=== PATIENT | female | born 1960 | race Caucasian/White ===

== ENCOUNTER → 2019-05-24 13:41 | Outpatient (BNVA) | payer BC, SELFPAY | PROVIDERS: Family Provider Nurse Practitioner; PCP Nurse Practitioner; Visit Provider Internal Medicine | DX: Z01.89 Encounter for other specified special examinations (principal) ==

== ENCOUNTER → 2019-08-30 13:36 | Outpatient (BNVA) | payer BC, SELFPAY | PROVIDERS: Family Provider Nurse Practitioner; PCP Nurse Practitioner; Visit Provider Internal Medicine | DX: B19.20 Unspecified viral hepatitis C without hepatic coma (principal) | CPT/HCPCS: 87522 ==

== ENCOUNTER → 2020-01-11 17:01 | Outpatient (BNVA) | payer BC, SELFPAY | PROVIDERS: Family Provider Nurse Practitioner; PCP Nurse Practitioner; Visit Provider Nurse Practitioner Family | DX: Z13.6 Encounter for screening for cardiovascular disorders (principal); M54.2 Cervicalgia; J30.9 Allergic rhinitis, unspecified; Z68.26 Body mass index [BMI] 26.0-26.9, adult; F17.210 Nicotine dependence, cigarettes, uncomplicated | CPT/HCPCS: 80053; 80061; 84443; 85025 ==

== ENCOUNTER → 2020-04-11 15:46 | Outpatient (BNVA) | payer BC, SELFPAY | PROVIDERS: Family Provider Nurse Practitioner; PCP Nurse Practitioner; Visit Provider Nurse Practitioner Family | DX: Z13.6 Encounter for screening for cardiovascular disorders (principal); Z00.00 Encounter for general adult medical examination without abnormal findings; M54.2 Cervicalgia | CPT/HCPCS: 80053; 80061; 84443; 85025 ==

== ENCOUNTER → 2020-04-27 13:59 | Outpatient (BNVA) | payer BC, SELFPAY | PROVIDERS: Family Provider Nurse Practitioner; PCP Nurse Practitioner; Visit Provider Nurse Practitioner Family | DX: M54.5 Low back pain (principal) | CPT/HCPCS: 81000 ==

== ENCOUNTER → 2020-07-18 12:17 | Outpatient (BNVA) | payer OTHER, SELFPAY | PROVIDERS: Family Provider Nurse Practitioner; PCP Nurse Practitioner; Visit Provider Nurse Practitioner Family | DX: E78.5 Hyperlipidemia, unspecified (principal) | CPT/HCPCS: 80053; 80061; 85025 ==

== ENCOUNTER 2020-08-29 06:00 | Outpatient (RCR) | payer OTHER, SELFPAY | END 2020-09-07 23:59 | disposition home or self-care (01) | LOC: TPT 06:00 | PROVIDERS: Family Provider Nurse Practitioner; PCP Nurse Practitioner; Referring Provider Nurse Practitioner Family; Visit Provider Nurse Practitioner Family | DX: M54.2 Cervicalgia (principal) | CPT/HCPCS: 97110; 97140; 97161 ==

== ENCOUNTER 2020-09-08 06:00 | Outpatient (RCR) | payer OTHER, SELFPAY | END 2020-10-08 23:59 | disposition home or self-care (01) | LOC: TPT 06:00 | PROVIDERS: Family Provider Nurse Practitioner; PCP Nurse Practitioner; Referring Provider Nurse Practitioner Family; Visit Provider Nurse Practitioner Family | DX: M54.2 Cervicalgia (principal) | CPT/HCPCS: 97110; 97140; 97164 ==

== ENCOUNTER 2020-10-09 06:00 | Outpatient (RCR) | payer OTHER, SELFPAY | END 2020-11-07 23:59 | disposition home or self-care (01) | LOC: TPT 06:00 | PROVIDERS: PCP Nurse Practitioner Family; Referring Provider Nurse Practitioner Family; Visit Provider Nurse Practitioner Family | DX: M54.2 Cervicalgia (principal) | CPT/HCPCS: 97110; 97140 ==

== ENCOUNTER → 2020-10-22 10:39 | Outpatient (BNVA) | payer OTHER, SELFPAY | PROVIDERS: PCP Nurse Practitioner Family; Visit Provider Nurse Practitioner Family | DX: Z00.00 Encounter for general adult medical examination without abnormal findings (principal); E78.5 Hyperlipidemia, unspecified; J30.9 Allergic rhinitis, unspecified; M54.5 Low back pain; M54.2 Cervicalgia | CPT/HCPCS: 80053; 80061; 84443; 85025 ==

== ENCOUNTER → 2021-04-22 10:31 | Outpatient (BNVA) | payer OTHER, SELFPAY | PROVIDERS: PCP Nurse Practitioner Family; Visit Provider Nurse Practitioner Family | DX: E78.5 Hyperlipidemia, unspecified (principal); Z23 Encounter for immunization; J30.9 Allergic rhinitis, unspecified; Z78.9 Other specified health status | CPT/HCPCS: 80053; 80061; 84443; 85025 ==

== ENCOUNTER → 2021-10-11 11:20 | Outpatient (BNVA) | payer BC, SELFPAY | PROVIDERS: PCP Nurse Practitioner Family; Visit Provider Nurse Practitioner Family | DX: E78.5 Hyperlipidemia, unspecified (principal); Z78.0 Asymptomatic menopausal state; Z12.31 Encounter for screening mammogram for malignant neoplasm of breast; Z00.00 Encounter for general adult medical examination without abnormal findings; L25.9 Unspecified contact dermatitis, unspecified cause; J06.9 Acute upper respiratory infection, unspecified; Z12.11 Encounter for screening for malignant neoplasm of colon; Z78.9 Other specified health status | CPT/HCPCS: 80053; 80061; 82306; 84443 ==

== ENCOUNTER 2021-11-08 11:22 | Outpatient (CLI) | payer BC, SELFPAY ==
--- NOTE | 2021-11-08 11:34 | MM_ITS ---
WS: [id number] SCREENING DIGITAL BREAST TOMOSYNTHESIS MAMMOGRAM WITH CAD HISTORY: screening COMPARISON: 01/05/2019 Bilateral CC and MLO with tomosynthesis and synthetic mammography submitted. Computer aided detection analyzed. Breast composition: There are scattered areas of fibroglandular density. Ovoid 6 mm asymmetry in the central LEFT breast seen on the CC projection only. This may resolve with additional imaging. The RIG HT breast is negative. MM/[place] [id number] IMPRESSION: BI-RADS: 0-Incomplete: Need additional imaging evaluation FOLLOW UP: Need Additional Imaging LEFT breast: Spot compression views (CC ). True ML. Ultrasound to follow if abn ormality persists.
== END 2021-11-08 11:23 | disposition home or self-care (01) ==
LOC: RAD 11:31
PROVIDERS: PCP Nurse Practitioner Family; Visit Provider Nurse Practitioner Family
DX: Z12.31 Encounter for screening mammogram for malignant neoplasm of breast (principal)
CPT/HCPCS: 77063; 77067

== ENCOUNTER 2021-12-06 08:57 | Outpatient (CLI) | payer BC, SELFPAY ==
--- NOTE | 2021-12-06 | US_ITS ---
ADDITIONAL VIEWS LEFT MAMMOGRAM with tomosynthesis. LEFT BREAST ULTRASOUND HISTORY: New 6 mm asymmetry in the central LEFT breast. COMPARISON: 11/08/2021 and 01/05/2019 LEFT MAMMOGRAM: Spot compression views and true ML with tomosynthesis and sympathetic mammography. Asymmetry persists at 12:00 at a middle to anterior depth measuring 6 x 6 mm. This may be a small lymph node. LEFT BREAST ULTRASOUND 2-D and color Doppler imaging submitted. Ultrasound directed along the 12:00 axis. There is a small nodule measuring 7 mm at its maximum length. Complex nodule is approximately 3 cm from the nipple. This may be a small cluster of cysts or benign lymph node or a cyst with a septation. This does correspond in size and location to the mammographic abnormality. As this is not a completely simple cyst ultrasound follow-up will be requested. IMPRESSION: BI-RADS: 3-Probably Benign FOLLOW UP: Need Additional Imaging 6 month follow-up LEFT breast ultrasound to reevaluate the complex cyst or small lymph node at 12:00 3 cm from the nipple. SPEEDY
--- NOTE | 2021-12-06 09:18 | MM_ITS ---
WS: [id number] ADDITIONAL VIEWS LEFT MAMMOGRAM with tomosynthesis. LEFT BREAST ULTRASOUND HISTORY: New 6 mm asymmetry in the central LEFT breast. COMPARISON: 11/08/2021 and 01/05/2019 LEFT MAMMOGRAM: Spot compression views and true ML with tomosynthesis and sympathetic mammography. Asymmetry persists at 12:00 at a middle to anterior depth measuring 6 x 6 mm. This may be a small lym ph node. LEFT BREAST ULTRASOUND 2-D and color Doppler imaging submitted. Ultrasound directed along the 12:00 axis. There is a small nodule measuring 7 mm at its maximum lengt h. Complex nodule is approximately 3 cm from the nipple. This may be a small cluster of cysts or inga gn lymph node or a cyst with a septation. This does correspond in size and location to the mammograph ic abnormality. As this is not a completely simple cyst ultrasound follow-up will be requested. MM/[id number] IMPRESSION: BI-RADS: 3-Probably Benign FOLLOW UP: Need Additional Imaging 6 month follow-up LEFT breast ultrasound to reevaluate the complex cyst or smal l lymph node at 12:00 3 cm from the nipple.
== END 2021-12-06 08:58 | disposition home or self-care (01) ==
PROVIDERS: PCP Nurse Practitioner Family; Visit Provider Nurse Practitioner Family
DX: R92.8 Other abnormal and inconclusive findings on diagnostic imaging of breast (principal); N64.89 Other specified disorders of breast
CPT/HCPCS: 76642; 77061

== ENCOUNTER → 2022-05-20 12:39 | Outpatient (BNVA) | payer BC, SELFPAY | PROVIDERS: PCP Nurse Practitioner Family; Visit Provider Nurse Practitioner Family | DX: Z12.4 Encounter for screening for malignant neoplasm of cervix (principal); N63.10 Unspecified lump in the right breast, unspecified quadrant; N63.20 Unspecified lump in the left breast, unspecified quadrant; R92.8 Other abnormal and inconclusive findings on diagnostic imaging of breast; Z01.419 Encounter for gynecological examination (general) (routine) without abnormal findings; B37.31 Acute candidiasis of vulva and vagina; R10.2 Pelvic and perineal pain | CPT/HCPCS: 88175 ==

== ENCOUNTER → 2022-05-27 11:27 | Outpatient (BNVA) | payer BC, SELFPAY | PROVIDERS: PCP Nurse Practitioner Family; Visit Provider Nurse Practitioner Family | DX: E78.5 Hyperlipidemia, unspecified (principal); E55.9 Vitamin D deficiency, unspecified | CPT/HCPCS: 80053; 80061; 82306; 84443; 85025 ==

== ENCOUNTER 2022-07-02 12:55 | Outpatient (CLI) | payer BC, SELFPAY ==
--- NOTE | 2022-07-02 13:00 | US_ITS ---
WS: [id number] TRANSABDOMINAL PELVIC ULTRASOUND HISTORY: R10.2 - Pelvic and perineal pain COMPARISON: 08/21/2008 Uterus: 5.9 cm x 5.1 cm x 3.4 cm. Normal size anteverted uterus. No mass identified. Fibroid cannot b e excluded without a transvaginal exam. Patient declined transvaginal imaging. Endometrium: 0.6 cm. Poorly visualized without transvaginal evaluation. Right ovary: 2.6 cm x 3.2 cm x 1.5 cm; no solid or cystic mass. Normal vascularity. Left ovary: 2.8 cm x 3.3 cm x 2.1 cm; no solid or cystic mass. Normal vascularity. No free fluid in the cul-de-sac. US/US pelvic complete* [id number] IMPRESSION: 1. Limited evaluation of the uterus and adnexa as no transvaginal imaging is s ubmitted. 2. No large uterine mass. No free fluid.
== END 2022-07-02 12:56 | disposition home or self-care (01) ==
LOC: RAD 12:57
PROVIDERS: PCP Nurse Practitioner Family; Visit Provider Nurse Practitioner Family
DX: R10.2 Pelvic and perineal pain (principal)
CPT/HCPCS: 76856

== ENCOUNTER 2022-07-11 13:41 | Outpatient (CLI) | payer BC, SELFPAY ==
--- NOTE | 2022-07-11 14:25 | US_ITS ---
WS: [id number] BILATERAL 3D TOMOSYNTHESIS DIGITAL DIAGNOSTIC MAMMOGRAPHY WITH CAD CLINICAL INFORMATION: SCREENING HISTORY: Six-month follow-up LEFT breast. RIGHT breast palpable abnormality. COMPARISON: December 06, 2021 TECHNIQUE: Bilateral CC, MLO, and ML views. FINDINGS: Scattered fibroglandular densities bilaterally. Palpable marker RIGHT lower inner quadrant. No suspic ious parenchymal normalities in this area. Ultrasound described below. Previously described 5 mm nodule near the 12:00 position not as well seen today on mammogram. Ultraso und described below. ULTRASOUND BREAST BILATERAL TECHNIQUE: Ultrasound bilateral breast focused area of concern. CLINICAL INFORMATION: SCREENING COMPARISON: Ultrasound LEFT December 06, 2021 FINDINGS: RIGHT BREAST: Ultrasound RIGHT breast at the 4 and 5:00 position and 10:00 position. No underlying pa renchymal abnormalities. No cystic or solid lesions. LEFT BREAST: Ultrasound LEFT breast. Previously described cysts are no longer visualized. However the re is a ill-defined hypoechoic irregular lesion taller than wide measuring 5.2 x 5.4 x 7.3 mm at the 12:00 position 2 cm from the nipple. Recommend further evaluation with ultrasound-guided biopsy. US/US breast BI limited* [id number] IMPRESSION: BI-RADS: 4-Suspicious Finding-Biopsy Should Be Considered FOLLOW UP: US Guided Biopsy Recommended RECOMMEND ULTRASOUND-GUIDED BIOPSY LEFT BREAST LESION.
--- NOTE | 2022-07-11 14:30 | MM_ITS ---
WS: [id number] BILATERAL 3D TOMOSYNTHESIS DIGITAL DIAGNOSTIC MAMMOGRAPHY WITH CAD CLINICAL INFORMATION: SCREENING HISTORY: Six-month follow-up LEFT breast. RIGHT breast palpable abnormality. COMPARISON: December 06, 2021 TECHNIQUE: Bilateral CC, MLO, and ML views. FINDINGS: Scattered fibroglandular densities bilaterally. Palpable marker RIGHT lower inner quadrant. No suspic ious parenchymal normalities in this area. Ultrasound described below. Previously described 5 mm nodule near the 12:00 position not as well seen today on mammogram. Ultraso und described below. ULTRASOUND BREAST BILATERAL TECHNIQUE: Ultrasound bilateral breast focused area of concern. CLINICAL INFORMATION: SCREENING COMPARISON: Ultrasound LEFT December 06, 2021 FINDINGS: RIGHT BREAST: Ultrasound RIGHT breast at the 4 and 5:00 position and 10:00 position. No underlying pa renchymal abnormalities. No cystic or solid lesions. LEFT BREAST: Ultrasound LEFT breast. Previously described cysts are no longer visualized. However the re is a ill-defined hypoechoic irregular lesion taller than wide measuring 5.2 x 5.4 x 7.3 mm at the 12:00 position 2 cm from the nipple. Recommend further evaluation with ultrasound-guided biopsy. MM/[place] [id number] IMPRESSION: BI-RADS: 4-Suspicious Finding-Biopsy Should Be Considered FOLLOW UP: US Guided Biopsy Recommended RECOMMEND ULTRASOUND-GUIDED BIOPSY LEFT BREAST LESION.
== END 2022-07-11 13:42 | disposition home or self-care (01) ==
PROVIDERS: PCP Nurse Practitioner Family; Visit Provider Nurse Practitioner Family
DX: R92.8 Other abnormal and inconclusive findings on diagnostic imaging of breast (principal); N63.25 Unspecified lump in the left breast, overlapping quadrants
CPT/HCPCS: 76642; 77062; G0279

== ENCOUNTER → 2022-07-24 14:33 | Outpatient (BNVA) | payer BC, MEDICAID, SELFPAY | PROVIDERS: PCP Nurse Practitioner Family; Visit Provider Nurse Practitioner Family | DX: R39.9 Unspecified symptoms and signs involving the genitourinary system (principal); N39.0 Urinary tract infection, site not specified | CPT/HCPCS: 81000 ==

== ENCOUNTER 2022-08-12 07:39 | Outpatient (CLI) | payer BC, MEDICAID, SELFPAY ==
--- NOTE | 2022-08-12 07:48 | US_ITS ---
WS: [id number] ULTRASOUND-GUIDED LEFT BREAST BIOPSY CLINICAL INFORMATION: IRREGULAR LESION LEFT BREAST COMPARISON: Ultrasound July 11, 2022 FINDINGS: The procedure including risks, benefits, and complications were discussed with the patient who agreed to proceed. Using sterile technique patient was prepped and draped in the usual sterile fashion. Aft er 1% lidocaine utilizing real-time ultrasound guidance 5 14-gauge cores were obtained of the LEFT br east lesion at the 12 o'clock position. Subsequently a titanium clip was placed in the biopsy cavity. No immediate complications. Pathology demonstrates A. Breast, left, 12 o'clock, 2 cm from nipple, ultrasound-guided biopsy: - Benign fibrocystic disease with stromal sclerosis. - No malignancy identified. US/[id number] IMPRESSION: 1. Uncomplicated ultrasound-guided LEFT breast biopsy. 2. The pathology demonstrates benign fibrocystic disease with stromal sclerosi s. No malignancy. 3. Recommend return to annual screening mammography. BI-RADS: 2-Benign FOLLOW UP: 1 Year Follow-up
== END 2022-08-12 07:40 | disposition home or self-care (01) ==
LOC: RAD 07:42
PROVIDERS: PCP Nurse Practitioner Family; Visit Provider Nurse Practitioner Family
DX: N63.25 Unspecified lump in the left breast, overlapping quadrants (principal)
CPT/HCPCS: 19083; 88305

== ENCOUNTER → 2022-09-03 13:18 | Outpatient (BNVA) | payer BC, MEDICAID, SELFPAY | PROVIDERS: PCP Nurse Practitioner Family; Visit Provider Obstetrics & Gynecology | DX: R87.619 Unspecified abnormal cytological findings in specimens from cervix uteri (principal) | CPT/HCPCS: 88305 ==

== ENCOUNTER → 2023-01-07 13:15 | Outpatient (BNVA) | payer BC, MEDICAID, SELFPAY | PROVIDERS: PCP Nurse Practitioner Family; Visit Provider Nurse Practitioner Family | DX: M54.50 Low back pain, unspecified (principal) | CPT/HCPCS: 81003 ==

== ENCOUNTER → 2023-01-22 09:14 | Outpatient (BNVA) | payer BC, MEDICAID, SELFPAY | PROVIDERS: PCP Nurse Practitioner Family; Visit Provider Family Medicine | DX: E55.9 Vitamin D deficiency, unspecified (principal); E78.5 Hyperlipidemia, unspecified | CPT/HCPCS: 80053; 80061; 82306; 85025 ==

== ENCOUNTER → 2023-03-10 15:50 | Outpatient (BNVA) | payer BC, MEDICAID, SELFPAY | PROVIDERS: PCP Nurse Practitioner Family; Visit Provider Obstetrics & Gynecology | DX: Z12.4 Encounter for screening for malignant neoplasm of cervix (principal) | CPT/HCPCS: 87624 ==

== ENCOUNTER → 2023-03-18 13:15 | Outpatient (BNVA) | payer BC, MEDICAID, SELFPAY | PROVIDERS: PCP Nurse Practitioner Family; Visit Provider Obstetrics & Gynecology | DX: R10.31 Right lower quadrant pain (principal); N83.202 Unspecified ovarian cyst, left side; N83.201 Unspecified ovarian cyst, right side | CPT/HCPCS: 76830 ==

== ENCOUNTER → 2023-08-06 11:48 | Outpatient (BNVA) | payer BC, OTHER, SELFPAY | PROVIDERS: PCP Nurse Practitioner Family; Visit Provider Nurse Practitioner Family | DX: E55.9 Vitamin D deficiency, unspecified (principal); E78.5 Hyperlipidemia, unspecified | CPT/HCPCS: 80053; 80061; 82306; 82607; 85025 ==

== ENCOUNTER 2023-10-01 13:59 | Outpatient (CLI) | payer BC, OTHER, SELFPAY ==
--- NOTE | 2023-10-01 14:09 | MM_ITS ---
WS: [id number] Bilateral screening 3D tomosynthesis digital mammogram, 10/01/2023 Clinical Data: ICD 12.31 Comparison: 07/11/2022, 12/06/2021, 11/08/2021, 01/05/2019. Findings: The breast parenchymal pattern shows fibroglandular tissue. No spiculated masses or clustered calcifi cations are seen. There are no secondary signs of carcinoma. There are lymph nodes in both axilla. Th ere is a biopsy clip in the superior aspect of the left breast. MM/[place] [id number] Impression: 1. Negative bilateral mammogram unchanged. 2. Recommend annual screening mammograms. BIRADS: 1-Negative FOLLOW UP: 1 Year Follow-up The CAD aircraft shipping checker was used.
== END 2023-10-01 14:00 | disposition home or self-care (01) ==
LOC: RAD 13:59
PROVIDERS: PCP Nurse Practitioner Family; Visit Provider Nurse Practitioner Family
DX: Z12.31 Encounter for screening mammogram for malignant neoplasm of breast (principal); R92.323 Mammographic fibroglandular density, bilateral breasts
CPT/HCPCS: 77063; 77067

== ENCOUNTER 2023-12-01 05:48 | Day surgery (SDC) | payer BC, OTHER, SELFPAY ==
[2023-12-01] VITALS (11 sets, daily range): BP systolic 105–158; BP diastolic 74–107; PULSE 73–95; RESP 13–22; TEMP 36.2–36.6; O2SAT 91–99; BMI 31.0
[2023-12-01] MEDS: sodium chloride 0.9% 1,000 ML 30 ML IV (06:17)
--- NOTE | 2023-12-01 06:38 | ANES.PREANE2 ---
Pre-Anesthetic Assessment Height/Weight: Height 1.52 m Weight 72.121 kg Temp Pulse Resp BP Pulse Ox O2 Del Method 97.2 F L 76 16 158/107 97 Room Air 12/01/23 06:10 12/01/23 06:10 12/01/23 06:10 12/01/23 06:10 12/01/23 06:10 12/01/23 06:10 Operation Date: 12/01/23 07:00 Proposed Procedures p Laparoscopic Inguinal Hernia Repair with mesh 62931, K40.90(Right) - Bridger Campoverde DO Familial anesthetic complications: None Was Beta Clara taken within 24 hours: N/A Was Clonidine taken within 24 hours: N/A Last intake: Intake Last Liquid Date 11/30/23 Last Liquid Time 22:30 Last Solid Date 11/30/23 Last Solid Time 22:30 Social Tobacco and No alcohol Exam alert, oriented x 3, clear to auscultation bilaterally and regular rate & rhythm Airway Mallampati: Class II Dentition: chipped (2 chipped, multiple missing) CV/HEM Hypertension Anesthetic Plan ASA status: 2 Anesthesia: General Risk of > 500 ml blood loss (7ml/kg in children): No Medications/Allergies Home Medications Medication Instructions Recorded Confirmed Last Taken Type multivitamin (Daily Multi-Vitamin 1 tab PO QAM 07/01/19 11/30/23 11/30/23 History tablet) azelastine 205.5 mcg (0.15 %) 2 spray intranasal DAILY #30 mL 05/27/22 11/30/23 1 Week Ago Rx nasal spray ~11/23/23 ergocalciferol (vitamin D2) 1,250 See Rx Instructions .Route 11/16/23 11/30/23 11/27/23 Rx mcg (50,000 unit) capsule .COMPLEX #12 caps coenzyme Q10 100 mg capsule 200 mg PO DAILY 11/30/23 11/30/23 11/29/23 History (CoQ-10) omega-3 fatty acids 500 mg PO DAILY 11/30/23 11/30/23 11/27/23 History tizanidine 4 mg tablet 4 mg PO TID PRN Muscle Spasm 11/30/23 11/30/23 11/28/23 History zinc sulfate-vitamin C 200 mg-100 1 tab PO DAILY 11/30/23 11/30/23 11/29/23 History mg tablet Allergies Allergy/AdvReac Type Severity Reaction Status Date / Time No Known Allergies Allergy Verified 11/19/23 11:04 Current Medications Generic Name Dose Route Start Last Admin Trade Name Jonathan PRN Reason Stop Dose Admin Sodium Chloride 1,000 mls @ 30 mls/hr 12/01/23 06:00 12/01/23 06:17 Sodium Chloride 0.9% IV 12/02/23 05:59 30 mls/hr .Q24H DAMARIS Administration PFSH Anesthesia Medical History Vitamin D deficiency Bilateral breast lump Abnormal mammogram of left breast Post-menopausal Statin intolerance Hepatitis C virus infection resolved after antiviral drug therapy SVR three months post therapy. No further testing warranted. Consider cured. Hepatitis C Surgical History S/P tubal ligation Family History Other Clotting disorder Diabetes Denies family history of Colon cancer Ovarian cancer Heart disease Hypercholesteremia Breast cancer Hypertension Uterine cancer Stroke Social History Smoking and tobacco/nicotine status: current every day tobacco/nicotine user cigarettes Packs smoked per day: 0.5 Years cigarettes smoked: 40 Second hand smoke exposure: No Alcohol intake: never Substance/Drug Use: never Household members: spouse Marital status: service: No Current gender identity: Female Special beth needs: No Data Anesthesia Cardiac Studies: No Data to Display
--- NOTE | 2023-12-01 06:54 | W.PM.OPSUD ---
Surgery/Procedure H&P Update DATE OF PROCEDURE: December 01, 2023 DATE H&P PERFORMED: 11/19/23 H&P UPDATE INFORMATION: I have reviewed H&P completed within last 30 days, I have examined patient prior to procedure and No changes to prior documentation PLANNED PROCEDURE: Operation Date: 12/01/23 07:00 Proposed Procedures p Laparoscopic Inguinal Hernia Repair with mesh 11910, K40.90(Right) - Bridger Campoverde DO
[2023-12-01] MEDS: ceFAZolin 2,000 mg SDV 2000 MG IVP (06:59)
[2023-12-01] MEDS: lidocaine-epi 2% PF 1:200,000 20 mL SDV XX (07:42)
[2023-12-01] MEDS: tranexamic acid 1,000 mg/10mL SDV 1000 MG IV (08:00)
--- NOTE | 2023-12-01 08:15 | PM.OP ---
Operative Report Date of procedure: December 01, 2023 Pre-op diagnosis: Right inguinal hernia Post-op diagnosis: same Procedure done: Laparoscopic (ISSAC) repair of right inguinal hernia with mesh Implants: Large right 3D max Bard mesh Specimens removed/disposition: None Surgeon: Bridger Campoverde DO Anesthesia: General Estimated blood loss (mL): 5 Complications: None apparent Brief History: This is a very pleasant 63-year-old female who presented my office with a right inguinal hernia. Laparoscopic repair with mesh was indicated. The risk and benefits were explained and documented. Procedure: Patient was wheeled operative room and placed on the OR table in the supine position. The abdomen was inspected prepped and draped in usual sterile fashion. General endotracheal ovation was achieved at the department anesthesia. Timeout was performed. All present were in agreement. 2% lidocaine with epinephrine was used to anesthetize the skin from umbilically. A 15 blade scalpel was used to make a midline incision. Dissection was carried down to the anterior rectus sheath. This was opened bluntly and a 12 mm trocar was placed into the abdomen. Abdominal insufflation was achieved at 15 mmHg. Two 5 mm trocars were then placed to the right and left of the midline trocar. A laparoscopic LigaSure was then used to take down the peritoneum over a direct right inguinal hernia. Peritoneum was further taken down bluntly. Once the preperitoneal space was fully cleared, a large right 3D max Bard mesh was placed into the pocket. This was tacked into the pubic bone using a capture. It unrolled nicely into the space. The peritoneum was then tacked back into place using a secure strap. The 12 mm trocar was removed and fascia was closed with an 0 Vicryl on a Ward-Mynor in a [id number] fashion. Insufflation was removed. 5 mm trocars were removed. Skin was closed with 4-0 Monocryl in a subcuticular interrupted fashion. Skin glue was applied. Patient tolerated procedure well.
[2023-12-01] MEDS: ondansetron 2 mg/ML SDV 2 mL 4 MG IVP ×2 (09:02→09:23)
--- NOTE | 2023-12-01 09:15 | ANE.PACU2 ---
Inpatient post-anesthesia follow up: Airway intact: Yes Vital signs: Temperature 98 F Pulse Rate 74 Respiratory Rate 16 Blood Pressure 123/91 Pulse Oximetry 94 Oxygen Delivery Me thod Room Air Oxygen Flow Rate 8 Fraction of Inspir ed Oxygen Hydration adequate: Yes Nausea and vomiting: No Pain level: 1 Mental status: Baseline
[2023-12-01] MEDS: HYDROcodone-acetaminophen 7.5-325 mg Tablet 1 TAB PO (09:25)
== END 2023-12-01 10:15 | disposition home or self-care (01) ==
PROVIDERS: PCP Nurse Practitioner Family; Visit Provider Surgery
PROC: (CPT 49650; principal; 2023-12-01 07:00)
DX: K40.90 Unilateral inguinal hernia, without obstruction or gangrene, not specified as recurrent (principal); I10 Essential (primary) hypertension; Z86.19 Personal history of other infectious and parasitic diseases; F17.210 Nicotine dependence, cigarettes, uncomplicated
CPT/HCPCS: 49650; 51702; C1781; J0690; J1100; J2371; J2405; J2704; J2710; J3010; J3490; J7030

== ENCOUNTER → 2024-03-15 09:52 | Outpatient (BNVA) | payer BC, OTHER, SELFPAY | PROVIDERS: PCP Nurse Practitioner Family; Visit Provider Nurse Practitioner Family | DX: E55.9 Vitamin D deficiency, unspecified (principal); E78.5 Hyperlipidemia, unspecified | CPT/HCPCS: 80053; 80061; 82306; 84443; 85025 ==

== ENCOUNTER → 2024-08-16 15:33 | Outpatient (BNVA) | payer BC, OTHER, SELFPAY | PROVIDERS: PCP Nurse Practitioner Family; Visit Provider Nurse Practitioner Family | DX: M25.511 Pain in right shoulder (principal); M25.711 Osteophyte, right shoulder | CPT/HCPCS: 73030 ==

== ENCOUNTER → 2024-09-05 13:11 | Outpatient (BNVA) | payer BC, OTHER, SELFPAY | PROVIDERS: PCP Nurse Practitioner Family; Visit Provider Specialist | DX: M25.511 Pain in right shoulder (principal) | CPT/HCPCS: 73030 ==

== ENCOUNTER → 2024-10-20 15:37 | Outpatient (BNVA) | payer BC, SELFPAY | PROVIDERS: PCP Nurse Practitioner Family; Visit Provider Nurse Practitioner Family | DX: R50.9 Fever, unspecified (principal) | CPT/HCPCS: 87426 ==

== ENCOUNTER → 2024-11-18 09:49 | Outpatient (BNVA) | payer BC, SELFPAY | PROVIDERS: PCP Nurse Practitioner Family; Visit Provider Nurse Practitioner Family | DX: R39.9 Unspecified symptoms and signs involving the genitourinary system (principal); N39.0 Urinary tract infection, site not specified | CPT/HCPCS: 81000; 87086 ==